=== PATIENT | male | born 1995 | race Caucasian/White ===

== ENCOUNTER 2022-06-05 12:24 | Emergency (ER) | payer BC, SELFPAY ==
[2022-06-05 12:30] VITALS: BP 151/99; PULSE 62; RESP 18; TEMP 36.2; O2SAT 98; BMI 23.8
--- NOTE | 2022-06-05 12:38 | CRLHL7_ITS ---
For Patients: As a result of the Cures Act, medical imaging exams and procedure reports are released immediately into your electronic medical record. You may view this report before your referring provider. If you have questions, please contact your health care provider. Indication: Injury Technique: Two views Comparison: None Findings: Bones: Alignment is normal. No fractures or bone lesions. Joint spaces: Unremarkable. Soft tissues: Unremarkable. Dictated by Bora Bautista MD @ 06/05/2022 2:00:48 PM (Electronically Signed)
--- NOTE | 2022-06-05 12:47 | ED_ITS ---
HPI - General Adult General Time Seen by Provider: 12:47 Date Seen: 06/05/22 Chief complaint: Extremity Pain/Injury, Lower Stated complaint: R ankle injury Time Seen by Provider: 06/05/22 12:25 Source: patient Mode of arrival: ambulatory Limitations: no limitations History of Present Illness HPI narrative: Patient is a 26-year-old male who tends to be worse him [place], who strained his ankle on Friday about 4 days ago. He reports that he ?rolled?. He has had some bruising and swelling. No medial ankle tenderness, he is ambulatory now without significant difficulty, he did feel some discomfort in his leg and proximal ankle and he was concerned about that so decided come in today. No other injuries he has got some bruising along lateral ankle and base of the foot laterally Related Data Home Medications Medication Instructions Recorded Confirmed albuterol sulfate 90 mcg/actuation 2 inh inhalation Q4H PRN 02/05/22 06/05/22 aerosol inhaler Allergies Allergy/AdvReac Type Severity Reaction Status Date / Time No Known Drug Allergies Allergy Verified 04/05/22 08:17 Review of Systems Narrative: No history of prior ankle injuries or difficulty healing. 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[employer], non-smoker Smoking Status: Never smoker Do you use any of these nicotine containing products: None Second hand tobacco smoke exposure: No How often do you have a drink containing alcohol: 2-4 times a month How many standard drinks containing alcohol do you have on a typical day: 1 or 2 How often do you have six or more drinks on one occasion: Never AUDIT-C Alcohol total score: 2 Non-prescribed substance use: denies use service: No Exam Narrative: Exam Narrative: Objective: Vital signs unremarkable and slightly elevated blood pressure No proximal fibular tenderness is right lower extremity he has got some bruising laterally over his ankle and lateral forefoot, there is no proximal 5th metatarsal pain no medial joint line pain ankle is stable distal CMS intact range of motion appears fairly full. No open wounds noted Const: Vital Signs, click to edit/add: Vital Signs - 24 hr 06/05/22 12:30 Temperature 97.1 F L Pulse Rate [Right Pulse Oximeter] 62 Respiratory Rate 18 Blood Pressure [Ri ght Upper Arm] 151/99 H Pulse Oximetry 98 Oxygen Delivery Me thod Room Air Course Vital Signs Vital signs: Initial Vital Signs Temperature 97.1 F L 06/05/22 12:30 Temperature Source Temporal Artery Scan 06/05/22 12:30 Pulse Rate 62 06/05/22 12:30 Respiratory Rate 18 06/05/22 12:30 Blood Pressure 151/99 H 06/05/22 12:30 Blood Pressure Mean 116 06/05/22 12:30 Blood Pressure Position Sitting 06/05/22 12:30 Pulse Oximetry 98 06/05/22 12:30 Oxygen Delivery Method 06/05/22 12:30 Vital Signs Temperature 97.1 F L 06/05/22 12:30 Pulse Rate 62 06/05/22 12:30 Respiratory Rate 18 06/05/22 12:30 Blood Pressure 151/99 H 06/05/22 12:30 Pulse Oximetry 98 06/05/22 12:30 Oxygen Delivery Method 06/05/22 12:30 Temperature 97.1 F L 06/05/22 12:30 Pulse Rate 62 06/05/22 12:30 Respiratory Rate 18 06/05/22 12:30 Blood Pressure 151/99 H 06/05/22 12:30 Pulse Oximetry 98 06/05/22 12:30 Oxygen Delivery Method 06/05/22 12:30 Medical Decision Making MDM Narrative Medical decision making narrative: Patient is a 26-year-old male with a right ankle inversion sprain. Will check an x-ray. If this is negative I think icing and Gaby and observation will be appropriate, he is ambulating pretty well at this time and does not have much discomfort with this. Follow-up with primary care in the next week to 10 days not improving changes concerns worsening light activity in the interim. Advil and icing as mention. Return to the ED as needed. Addendum: The patient's x-ray by my read looks unremarkable, he does have some distal fibular irregularity that looks like it is an old injury perhaps an old ankle sprain with some rounded distal tip of the fibula calcification. Will await Radiology overreading. At this point given he is walking without difficulty can continue to walk limited however, icing, Advil, follow up with primary care in 7-10 days sooner as needed. Discharge Plan Discharge Clinical Impression: Strain of ankle, right Patient Disposition: Home, Self-Care Condition: Stable Instructions: Ankle Strain (ED) Additional Instructions: Continue ice to 3 times a day for 10 minutes, gentle [id number] exercises, Advil as needed, follow-up in the next 7-10 days not improving changes concerns worsening return to ED sooner. Activity Level: Light activity Discharge Diet: Regular Prescriptions: No Action albuterol sulfate 90 mcg/actuation HFA aerosol inhaler 2 inh inhalation Q4H PRN Follow Up/Referrals: Valente Clements MD [Primary Care Provider] - Stand Alone Forms: NextImage Medical Info Instructions
== END 2022-06-05 13:31 | disposition home or self-care (01) ==
LOC: ED 12:54
PROVIDERS: Emergency Provider Family Medicine; PCP Family Medicine
DX: S96.911A Strain of unspecified muscle and tendon at ankle and foot level, right foot, initial encounter (principal)
CPT/HCPCS: 73600; 99283; A0425; A0428